=== PATIENT | female | born 1950 | race Caucasian/White ===

== ENCOUNTER 2025-05-27 08:11 | Outpatient (REF) | payer MEDICARE, SELFPAY ==
--- OUTSIDE RECORDS SUMMARY | 2025-05-23 23:59 | XMS_ITS | Continuity of Care Document ---
Author Organization [facility] [place] Address [address] [place] [address]- Support Name Relationship Address Phone SASHA COKER Personal Relationship Unknown Unavailable TOMY COKER child Unknown Unavailabl e SHEELA, SASHA Personal Relationship Unknown Unavailable MELISSAKILULU, SASHA Personal Relationship Unknown Unavailable MELISSAKIEWALEK, SASHA Personal Relationship Unknown Unavailable MICKIEWALEK, SASHA Personal Relationship Unknown Unavailable MICJAMES, SASHA Personal Relationship Unknown Unavailable SHEELA, SASHA Personal Relationship Unknown Unavailable SHEELA, SASHA spouse Unknown Unavailab le MELISSAKIEWALEK, SASHA Personal Relationship Unknown Unavailable SHEELA, SASHA Personal Relationship Unknown Unavailable MICPARVEENEWALEK, SASHA Personal Relationship Unknown Unavailable SHEELA, SASHA Personal Relationship Unknown Unavailable GERRY, SASHA Personal Relationship Unknown Unavailable SHEELA, SASHA Personal Relationship Unknown Unavailable SHEELA, SASHA Personal Relationship Unknown Unavailable SHEELA, SASHA Personal Relationship Unknown Unavailable SHEELA, SASHA Personal Relationship Unknown Unavailable SHEELA, SASHA Personal Relationship Unknown Unavailable SHEELA NIR Personal Relationship Unknown [facility] Care Team Providers Care Pick Remover Name Role Phone Rajeev Lopes MD Primary Care Physician [facility] [id number] Date(s): 04/23/25 - 05/23/25 [facility] [place] [address] [place] [address]- Encounter Type: Triage Allergies, Adverse Reactions, Alerts Substance Criticality Severity Reaction Reaction Severity Status doxycycline Active clindamycin itching Active penicillin hives Rash Active Meclomen itching Active benzoin topical peeling/red skin Active sulfa drugs hives Rash Active Other Environmental Allergy 1 Itchy,weeping skin Active Bactrim rash Active Vicodin Itchy Active Lactose gas Active 5-Aminosalicylic Acid hives Active Uceris foam caused rectal itching Active 1nylon Immunizations Given and Recorded Vaccine Date Status Refusal Reason hepatitis B adult vaccine 1 02/05/25 Given hepatitis B adult vaccine 2 01/08/25 Given influenza virus vaccine, inactivated 04/17/24 Marino rded influenza virus vaccine, inactivated 04/21/23 Give n influenza virus vaccine, inactivated 04/14/22 Marino rded influenza virus vaccine, inactivated 04/02/21 Marino rded influenza virus vaccine, inactivated 3 04/12/20 Gi mustapha influenza virus vaccine, inactivated 4 04/16/19 Gi mustapha influenza virus vaccine, inactivated 04/04/18 Marino rded influenza virus vaccine, inactivated 5 04/05/17 Gi mustapha influenza virus vaccine, inactivated 04/14/16 Give n influenza virus vaccine, inactivated 04/13/15 Give n influenza virus vaccine, inactivated 04/02/14 Marino rded influenza virus vaccine, inactivated 03/13/14 Give n tetanus/diphtheria/pertussis, acel(Tdap) 6 10/14/17 Given FluLaval (oldterm) 7 03/17/11 Given Tet/Diphth/Acel, Pertussis (oldterm) 8 06/10/08 Gi mustapha 1Result Comment: [facility] [id number] 2Result Comment: [facility] [id number] 3Result Comment: [id number] 4Result Comment: [facility] [id number] 5Result Comment: [04/05/2017] 46196-956-56 6Result Comment: [10/14/2017] 10113-880-48 7Admin Note: Manufactured by [employer] [facility] Distributed by [employer] EXP 11/2011 8Admin Note: ADACEL [employer] [facility] mfg Medications azaTHIOprine 50 mg oral tablet 100 mg, 2, tablet, By Mouth, Daily, # 180 tablet, Refills 3, Tot. Refills 3, Maintenance, 04/08/25 9:55:00 AM EDT, Route to Pharmacy Electronically, [facility] # 86, Partial fill upon patient request if the prescription is for a schedule II opioid drug., 173, cm, 04/08/25 9:22:00 EDT, Height, 67.1, kg, 05/27/24 8:20:00 EST, Dry Weight Start Date: 04/08/25 Status: Ordered Medication Dispense Status: Completed Quantity: 180.0 Unit: tablet Total Allowed Fills: 4 Fills Dispensed: 0 azaTHIOprine 50 mg oral tablet 100 mg, 2, tablet, By Mouth, 2 times a day, # 360 tablet, Refills 3, Tot. Refills 3, Maintenance, 04/03/25 5:35:00 AM EDT, Route to Pharmacy Electronically, [facility] # 86, 173, cm, 03/20/25 11:01:00 EDT, Height, 67.1, kg, 05/27/24 8:20:00 EST, Dry Weight Start Date: 04/03/25 Stop Date: 03/29/26 Status: Ordered Medication Dispense Status: Completed Quantity: 360.0 Unit: tablet Total Allowed Fills: 4 Fills Dispensed: 0 Calcium 600 +D oral tablet 2 tablet, By Mouth, Daily, # 60 tablet, 0 Refills, Maintenance, 10/25/18 8:25:57 AM EDT, Tablet Start Date: 10/25/18 Status: Ordered Medication Dispense Status: Completed Quantity: 60.0 Unit: tablet Total Allowed Fills: 1 Fills Dispensed: 0 rosuvastatin 10 mg oral tablet 1 tablet = 10 mg, By Mouth, Daily, # 90 tablet, 3 Refills, Maintenance, 04/16/25 9:05:00 AM EST, Tablet, [facility] # 86, Partial fill upon patient request if the prescription is for a schedule IIopioid drug., 173, cm, 04/16/25 8:44:00 EST, Height, 67.1, kg, 05/27/24 8:20:00 EST, Dry Weight Start Date: 04/16/25 Status: Ordered Medication Dispense Status: Completed Quantity: 90.0 Unit: tablet Total Allowed Fills: 4 Fills Dispensed: 0 triamcinolone 0.025% topical cream 1 application, Topically, Every Tuesday and , PRN Pain , Moderate, apply a thin film to affected area 2 times a week, # 60 Gm, 3 Refills, Maintenance, 05/16/23 2:06:00 PM EST, Cream, [facility] # [facility], must be brand name medication Perrigo only, 1 application Topically Every Tuesday and ,PRN:Pain , Moderate,Instr:apply a thin film; to affected area 2 times a week, 170, cm, 05/06/2315:20:00 EST, Height, 69.4, kg, 03/04/23 11:32:00 EDT, Dry Weight Start Date: 05/16/23 Status: Ordered Medication Dispense Status: Completed Quantity: 60.0 Unit: g Total Allowed Fills: 4 Fills Dispensed: 0 Indications: Lichen sclerosus et atrophicus; Vitamin D3 oral tablet 1 tablet = 400 International_Units, By Mouth, Daily before lunch, # 30 tablet, 0 Refills, Maintenance, 10/02/18 10:39:46 AM EDT, Tablet Start Date: 10/02/18 Status: Ordered Medication Dispense Status: Completed Quantity: 30.0 Unit: tablet Total Allowed Fills: 1 Fills Dispensed: 0 Problem List Condition Confirmation Course Effective Dates Status H ealth Status Informant Alopecia 1 Confirmed 1997 Active History of endometrial cancer Confirmed Active Hyperlipidemia 2, 3 Confirmed Active Lichen sclerosus Confirmed Active Low back pain Confirmed Active Endometrial cancer Confirmed Active Multinodular goiter (needs repeat U/S Feb 2025) 4 Confirmed Active Osteopenia 5 Confirmed Active Tinnitus, left ear Confirmed Active Ulcerative colitis Confirmed Active Varicose veins Confirmed Active Vitamin D deficiency Confirmed Active 1wears hair piece. Saw Dr Oviedo at time of dx 2Goal actually LDL<160 since fm hx was distant relatives. Neither of her parents had CAD. 3RF = age and family hx. Ideally LDL <[address] bartlett 5GYn is following Social History Social History Type Response Smoking Status Never smoker; Tobacc o user in household: No entered on: 06/25/13 Sexual Orientation Self described orien tation: ; Straight or heterosexual Sex Sex Representation Female (finding) Patient Care team information Care Team Personnel Name: Rajeev Lopes MD Position: [facility] Physician - Primary Care Member Role: PCP Address: [address] [place] [address]- Telecom: Name: Maria E Rodriguez RN Position: [facility] AMB Nurse Member Role: Primary Care Nurse Care Team Related Persons Name: SASHA COKER Name: TOMY COKER Insurance Providers Guarantor name: NIR COKER Health Plan Information #: 1 Payer: MEDICARE B Payer Identifier: RUPAL Member Number: [id number] Group Number: RUPAL Subscriber Identifier: RUPAL Relationship to Subscriber: self Coverage Type: NA Coverage Verification Date: NA Telecom: NA Address: RUPAL [facility] Plan Information #: 2 Payer: MEDEX SECONDARY ONLY Payer Identifier: RUPAL Member Number: [id number] Group Number: RUPAL Subscriber Identifier: RUPAL Relationship to Subscriber: self Coverage Type: Medicare Other Coverage Verification Date: RUPAL Telecom: NA Address: NA
--- OUTSIDE RECORDS SUMMARY | 2025-05-23 23:59 | XMS_ITS | Continuity of Care Document ---
Author Organization [facility] Address [address] [place] [address]- Support Name Relationship Address Phone SASHA COKER Personal Relationship Unknown Unavailable TOMY COKER child Unknown Unavailabl e SHEELA, SASHA Personal Relationship Unknown Unavailable MICKIEWALEK, SASHA Personal Relationship Unknown Unavailable MICKIEWALEK, SASHA Personal Relationship Unknown Unavailable MICKIEWICZ, SASHA Personal Relationship Unknown Unavailable MICKIEWALEK, SASHA Personal Relationship Unknown Unavailable SHERRYEWALEK, SASHA Personal Relationship Unknown Unavailable SHEELA, SASHA spouse Unknown Unavailab le MELISSAKIEWALEK, SASHA Personal Relationship Unknown Unavailable MICPARVEENEWALEK, SASHA Personal Relationship Unknown Unavailable MICPARVEENEWALEK, SASHA Personal Relationship Unknown Unavailable MICPARVEENEWALEK, SASHA Personal Relationship Unknown Unavailable LORECZ, SASHA Personal Relationship Unknown Unavailable SHEELA, SASHA Personal Relationship Unknown Unavailable SHEELA, SASHA Personal Relationship Unknown Unavailable SHEELA, SASHA Personal Relationship Unknown Unavailable SHEELA, SASHA Personal Relationship Unknown Unavailable SHEELA, SASHA Personal Relationship Unknown Unavailable SHEELA NIR Personal Relationship Unknown U navailable Care Team Providers Care Tester Vibrator Equipment Name Role Phone Rajeev Lopes MD Primary Care [id number] Date(s[facility] 04/23/25 - 05/23/25 [facility] [address] [place] [address]- Encounter Type: Triage Allergies, Adverse Reactions, Alerts Substance Criticality Severity Reaction Reaction Severity Status doxycycline Active clindamycin itching Active 5-Aminosalicylic Acid hives Active penicillin hives Rash Active Meclomen itching Active benzoin topical peeling/red skin Active sulfa drugs hives Rash Active Other Environmental Allergy 1 Itchy,weeping skin Active Bactrim rash Active Vicodin Itchy Active Lactose gas Active Uceris foam caused rectal itching Active [...] (oldterm) 8 06/10/08 Gi mustapha 1Result Comment: [facility] [id number] 2Result Comment: [facility] [id number] 3Result Comment: [id number] 4Result Comment: [facility] [id number] 5Result Comment: [04/05/2017] [id number] 6Result Comment: [10/14/2017] [id number] 7Admin Note: Manufactured by [employer] [facility] Distributed by [employer] EXP 11/2011 8Admin Note: ADACEL [employer] [facility] mfg Medications azaTHIOprine 50 mg oral tablet 100 mg, 2, tablet, By Mouth, Daily, # 180 tablet, Refills 3, Tot. Refills 3, Maintenance, 04/08/25 9:55:00 AM EDT, Route to Pharmacy Electronically, [facility] # [facility], Partial fill upon patient [...] EDT, Route to Pharmacy Electronically, [facility] # 86, 173, cm, 03/20/25 [...] 04/16/25 9:05:00 AM EST, Tablet, [facility] # 86, Partial fill upon [...] 05/16/23 2:06:00 PM EST, Cream, [facility] # [facility], must be brand name medication Perrigo only, 1 application Topically Every Tuesday and Thurs day,PRN:Pain , Moderate,Instr:apply a thin film; to affected [...] Team Personnel Name: Rajeev Lopes MD Position: [facility] Physician - Primary Care Member Role: PCP Address: [address] [place] [address]- Telecom: Name: Maria E Rodriguez RN Position: [facility] AMB Nurse Member Role: Primary Care Nurse Care Team Related Persons Name: SASHA COKER Name: TOMY COKER Insurance Providers Guarantor name: NIR MICKIEWICZ Health Plan Information #: 1 Payer: MEDICARE B Payer Identifier: RUPAL Member Number: [id number] Group Number: RUPAL Subscriber Identifier: RUPAL Relationship to Subscriber: self Coverage Type: NA Coverage Verification Date: NA Telecom: NA Address: RUPAL Health Plan Information #: 2 Payer: MEDEX SECONDARY ONLY Payer Identifier: RUPAL Member Number: [id number] Group Number: RUPAL Subscriber Identifier: RUPAL Relationship to Subscriber: self Coverage Type: Medicare Other Coverage Verification Date: NA Telecom: NA Address:
--- OUTSIDE RECORDS SUMMARY | 2025-05-24 23:59 | XMS_ITS | Continuity of Care Document ---
Author Organization [facility] Address [address] [facility] [address] [place] [address]- Support Name Relationship Address Phone SASHA COKER Personal Relationship Unknown Unavailable MICKIEWICZ, TOMY child Unknown Unavailabl e MICKIEWICZ, SASHA Personal Relationship Unknown Unavailable MICKIEWICZ, SASHA Personal Relationship Unknown Unavailable MICKIEWICZ, SASHA Personal Relationship Unknown Unavailable MICKIEWICZ, SASHA Personal Relationship Unknown Unavailable MICKIEWICZ, SASHA Personal Relationship Unknown Unavailable MICKIEWICZ, SASHA Personal Relationship Unknown Unavailable MICKIEWICZ, SASHA spouse Unknown Unavailab le MICKIEWICZ, SASHA Personal Relationship Unknown Unavailable MICKIEWICZ, SASHA Personal Relationship Unknown Unavailable MICKIEWICZ, SASHA Personal Relationship Unknown Unavailable MICKIEWICZ, SASHA Personal Relationship Unknown Unavailable MICHIEWICZ, SASHA Personal Relationship Unknown Unavailable MICKIEWICZ, SASHA Personal Relationship Unknown Unavailable MICKIEWICZ, SASHA Personal Relationship Unknown Unavailable MICKIEWICZ, SASHA Personal Relationship Unknown Unavailable MICKIEWICZ, SASHA Personal Relationship Unknown Unavailable SHEELA, SASHA Personal Relationship Unknown Unavailable SHEELA NIR Personal Relationship Unknown U navailable Care Team Providers Care Dental Prosthetist Name Role Phone Rajeev Lopes MD Primary Care Physician [phone] Encounter 05/17/25 - 05/24/25 [facility] [address], [facility] [address] [place] [address]- Attending Physician: Rajeev Lopes MD Admitting Physician: Rajeev Lopes MD Referring Physician: Rajeev Lopes MD Encounter Type: OutPatient One Time Allergies, Adverse Reactions, Alerts Substance Criticality Severity [...] (oldterm) 8 06/10/08 Gi mustapha 1Result Comment: [facility] [id number] 2Result Comment: [facility] [id number] 3Result Comment: [id number] 4Result Comment: [facility] [id number] 5Result Comment: [04/05/2017] [id number] 6Result Comment: [10/14/2017] [id number] 7Admin Note: Manufactured by [employer] Distributed by [employer] EXP 11/2011 8Admin Note: ADACEL [employer] [facility] mfg Medications azaTHIOprine 50 mg oral tablet 100 mg, 2, tablet, By Mouth, Daily, # 180 tablet, Refills 3, Tot. Refills 3, Maintenance, 04/08/25 9:55:00 AM EDT, Route to Pharmacy Electronically, [facility] # 86, Partial fill upon patient [...] 5:35:00 AM EDT, Route to Pharmacy Electronically, [facility] # 86, 173, cm, 03/20/25 11:01:00 [...] Refills, Maintenance, 04/16/25 9:05:00 AM EST, Tablet, [facility] # 86, Partial fill upon patient [...] Refills, Maintenance, 05/16/23 2:06:00 PM EST, Cream, [facility], must be brand name medication Perrigo only, 1 application Topically Every Tuesday and day,PRN:Pain , Moderate,Instr:apply a thin film; to [...] 4followed by Dr bartlett 5GYn is following Results Radiology Reports * Exam Date Time Procedure Performing Provider Status 05/17/25 11:51 AM MM Digital Mammo Screening Auth (Verified) Notes: (MM Digital Mammo Screening) Reason For Exam: Z12.31 ROUTINE SCREENING RESULT: MM Digital Mammo Screening PROCEDURE: MM Digital Mammo Screening INDICATION: Screening for breast cancer. No known palpable abnormalities. COMPARISON: Comparison is made to prior relevant studies in PACS. TECHNIQUE: Full-field digital CC and MLO 3D tomosynthesis images of both breasts were acquired. Computer-aided detection (CAD) was utilized in the interpretation of this study. DENSITY: The breasts are heterogeneously dense, which may obscure small masses. FINDINGS: No suspicious masses, suspicious microcalcifications, or areas of architectural distortion are seen in either breast to suggest malignancy. IMPRESSION: No mammographic evidence of malignancy. RECOMMENDATION: Annual mammographic screening. BI-RADS: 1 (Negative) Lay letter mailed to patient WSN: [id number] Ordering Physician: Rajeev Lopes Dictated By: Loida Garcia MD Dictated Date/Time: 05/19/25 7:26 pm Reviewed By: Loida Garcia MD Signed By: Loida Garcia MD Signed Date/Time: 05/19/25 7:26 pm Transcribed By: [employer] Compensation Analyst Date/Time: 05/19/25 7:24 pm Birads: Social History Social History Type Response Smoking Status Never smoker; Tobacc o user in household: No entered on: 06/25/13 Sexual Orientation Self described orien tation: ; Straight or heterosexual Sex Sex Representation Female (finding) Patient Care team information Care Team Personnel Name: Rajeev Lopes MD Position: [facility] Physician - Primary Care Member Role: PCP Address: [address] [place] [address] Telecom: Name: Maria E Rodriguez RN Position: [facility] AMB Nurse Member Role: Primary Care Nurse Care Team Related Persons Name: SASHA COKER Name: TOMY COKER Insurance Providers Guarantor name: NIR COKER Health Plan Information #: 1 Payer: MEDICARE B Payer Identifier: NA Member Number: [id number] Group Number: Subscriber Identifier: [id number] Relationship to Subscriber: self Coverage Type: NA Coverage Verification Date: NA Telecom: NA Address: NA Health Plan Information #: 2 Payer: MEDEX SECONDARY ONLY Payer Identifier: NA Member Number: [id number] Group Number: NA Subscriber Identifier: [id number] Relationship to Subscriber: self Coverage Type: Medicare Other Coverage Verification Date: NA Telecom: NA Address:
--- OUTSIDE RECORDS SUMMARY | 2025-05-27 08:52 | XMS_ITS | Patient Health Record ---
Author Organization [facility] Address [address] [place] [id number] Care Team Providers Care Caregiver Services Home Name Role Phone Rajeev Lopes MD Primary Care Provider Jimmy Marie Jr Unavailable Allergies Allergen (clinical drug ingredient) Drug/Non Drug Allergy documented on EMR Reaction Allergy Type Onset Date Status sulfamethoxazole / trimethoprim Bactrim Unknown Drug Allergy Active Benzoin Unknown Drug Allergy Active budesonide Budesonide Unknown Drug Allergy Activ e mesalamine Canasa Unknown Drug Allergy Active Neomycin-Polymyxin B Unknown Drug Allergy Active Ophthalmic Irrigatio n Solution Unknown Drug Allergy Active Vicodin Unknown Drug Allergy Active budesonide Budesonide Unknown Drug Allergy Activ e meclofenamate Meclofenamate Unknown Drug Allergy Active Substance with sulfonamide structure and antibacterial mechanism of action (substance) Sulfa Antibiotics Unknown Drug Allergy Active Penicillin Unknown Drug Allergy Active Reason For Referral No Information Medications Medication SIG (Take, Route, Frequency, Duration) Notes Start Date End Date Status Rosuvastatin Calcium 10 MG Tablet 1 tablet Orally Once a day Active azaTHIOprine 50 MG Tablet as directed Orally Active Vitamin D3 25 MCG (1000 UT) Tablet Chewable 1 tablet Orally Once a day Active Calcium + D 500-1000-40 MG-UNT-MCG Tablet Chewable as directed Orally Active Immunizations Vaccine Route Administration Date Status Comme nts Influenza Unknown 04/29/2024 Administered Social History Tobacco Use: Social History Observation Description Date Details (start date - stop date) Never Smoker NA - NA Social History Drug/Alcohol: Social Info Question Answer Notes AUDIT-C (Standard) Did you have a drink containing alcohol in the past year? No Points 0 Interpretation Negative Tobacco Use: Social Info Question Answer Notes Tobacco Control (Standard) Tobacco use: Nonsmoker Additional Details Category Social Info Options Details Miscellaneous: Marital status: Occupation: retired Problems Problem Type SNOMED Code ICD Code Onset Dates Problem Status W/U Status Risk Notes Problem Ulcerative colitis (25653465) Ulcerative colitis (K51.90) Active confirmed Vital Signs Temperature 98.0 degrees Fahrenheit 04/29/2025 Blood pressure diastolic 00 mm Hg 04/29/2025 Height 66 in 04/29/2025 Blood pressure systolic 000 mm Hg 04/29/2025 Weight 140.2 lbs 04/29/2025 BMI 22.63 kg/m2 04/29/2025 Encounters Encounter Location Date Provider Diagnosis [facility] [address] [place] [address] 04/29/2025 Jimmy Padgett Jr Ulcerative colitis K51.90 Assessments Encounter Date Diagnosis (ICD Code) Assessment Notes Treatment Notes Treatment Clinical Notes Section Notes 04/29/2025 Ulcerative colitis (ICD-10 - K51.90) We discussed ulcerative colitis in detail today. She is averse to therapy with biologic agents and we discussed this as well. We discussed risks and benefits of azathioprine therapy as well as biologic therapy. We recommended she continue 100 mg daily of azathioprine and follow-up with laboratory testing in about a month. Follow-up office visit will be in 6 months. She is clinically in remission and endoscopically appeared to be as well at her last colonoscopy. She does not wish to pursue more colonoscopies at this time. We will review her biopsy results as they become available from her colonoscopy in 2019. She is comfortable with this plan. Plan Of Treatment Pending Test Test Name Order Date LIVER PROFILE 04/29/2025 CBC w/o DIFF 04/29/2025 Lipase 04/29/2025 Thiopurine Metabolites 04/29/2025 Next Appt Details Provider Name:Jimmy cain Jr, 10/28/2025 09:40:00 AM, [address], [address], [place], [address], Insurance Providers Payer Name Payer Address Payer Phone Subscriber Number Group Number Insured Name Patient Relationship to Insured Coverage Start Date Coverage End Date MEDICARE OF [place] [address] [place] [address] [phone] [id number] NIR TYLER Self - patient is the insured 4 [employer] ATTN CLAIMS [address] [place] [address] [id number] NIR TYLER Self - patient is the insured Medical (General) History Medical History History ICD Code endometrial carcinoma Alopecia Lichen sclerosis Ulcerative colitis, Diagnose d 2014 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 Last colonoscopy 2018 endoscopically normal, biopsies obtained not available currently Surgical History Surgery Date(Month/Year) hysterectomy cataract removal polypectomy dilatation and curettage
--- OUTSIDE RECORDS SUMMARY | 2025-05-27 08:52 | XMS_ITS | Patient Health Record ---
[facility] [address] [place] [address] Care Team Providers Care Armhole Baster Hand Name Role Phone Moses Shook MD, Rajeev Primary Care Provider Unavail able Black, Macarena Unavailable [phone] Allergies Allergen (clinical drug ingredient) Drug/Non Drug Allergy documented on EMR Reaction Allergy Type Onset Date Status sulfamethoxazole / trimethoprim Bactrim Unknown Drug Allergy Active Benzoin Compound oozing, itching Drug Allergy Active meclofenamate Meclofenamate Sodium rash Drug Allergy Active mesalamine Mesalamine Unknown Drug Allergy Activ e Vicodin rash, itching Drug Allergy Act golden Adhesive Tape rash, itching, oozing Drug Allergy Active budesonide Uceris Unknown Drug Allergy Active Substance with penicillin structure and antibacterial mechanism of action (substance) Penicillins hives Drug Allergy Active Substance with sulfonamide structure and antibacterial mechanism of action (substance) Sulfa Antibiotics hives Drug Allergy Active Clindamycin Phos & Dimeth-Zinc Unknown Drug Allergy Active Reason For Referral No Information Medications Medication SIG (Take, Route, Frequency, Duration) Notes Start Date End Date Status Vitamin D3 Active Caltrate 600+D Activ e Rosuvastatin Calcium Active Triamcinolone Acet & Anesth Active azaTHIOprine 100 MG as directed Orally Active Social History Tobacco Use: Social History Observation Description Date Details (start date - stop date) Former Smoker NA - NA Tobacco Use/Smoking Question Answer Notes Are you a: former smoker How long has it been since y ou last smoked? 1-3 months Additional Findings: Tobacco User Light cigarett e smoker ((1-9 cigs/day) Additional Findings: Tobacco Non-User Current no n-smoker Alcohol Screen Question Answer Notes Did you have a drink containing alcohol in the p ast year? No Points 0 Interpretation Negative Tobacco use other than smoking: Question Answer Notes Are you an other tobacco user? 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 [address] [id number] Denia [place] Self - patient is the insured [employer] [address] [place] [address] [phone] [id number] Denia [place] Self - patient is the insured Medical (General) History Medical History History ICD Code Arthritis Cholesterol Headaches Measles Chicken pox Osteoporosis multinodular goiter Alopecia Universalis Back,Hip,and Knee pain Cancer (endometrial) Ulcerative colitis Numbness Lichens Sclerosis Surgical History Surgery Date(Month/Year) elbow sx 07/2014 polypectomy 10/10/2018 radical hysterectomy 11/30/2018
[2025-05-27 09:07] LABS: Hematocrit 40.6 % (37.0-47.0); Hemoglobin 13.4 g/dl (12.0-16.0); Mean Corpuscular HGB Conc 33.0 g/dl (31.0-35.0); Mean Corpuscular Hemoglobin 32.1 pg (27.0-33.0); Mean Corpuscular Volume 97.4 fL (80.0-98.0); NRBC Abs Auto 0.000 X10*3/uL (0.0-0.012); NRBC Pct Auto 0.0 /100WBC (0.0-0.2); Platelet Count 172 X10*3/uL (160-400); Red Blood Count 4.17 X10*6/uL (4.20-5.50); White Blood Count 3.5 X10*3/uL (4.8-10.8)
[2025-05-27 09:34] LABS: Alanine Aminotransferase 18 U/L (0-31); Albumin Level 4.6 g/dL (3.5-5.0); Alkaline Phosphatase 58 U/L (39-117); Aspartate Amino Transferase 28 U/L (5-31); Lipase 32 U/L (8-78); Total Protein 6.8 g/dL (6.5-8.0)
== END 2025-05-27 08:12 | disposition home or self-care (01) ==
LOC: HO.LAB 08:11
PROVIDERS: PCP Internal Medicine; Visit Provider Internal Medicine Gastroenterology
DX: K51.90 Ulcerative colitis, unspecified, without complications (principal)
CPT/HCPCS: 36415; 80076; 80299; 83690; 85027